=== PATIENT | male | born 1960 | race Caucasian/White ===

== ENCOUNTER 2017-01-12 15:25 | Inpatient (IN) | payer MEDICAID ==
[~2017-01-12] VITALS: Ht 190.5 cm; Wt 126.0 kg
[2017-01-12 16:18] LABS: Basophils # (auto) 0.1 uL; Basophils % (auto) 0.6 % (0.0-2.0); Eosinophils # (auto) 0.1 uL; Eosinophils % (auto) 1.4 % (0.0-7.0); Hematocrit 43.9 % (41.0-53.0); Lymphocytes # (auto) 1.5 uL; Lymphocytes % (auto) 15.9 % (10.0-50.0); Mean Corpuscular Hemoglobin 31.8 pg (28.0-32.0); Mean Corpuscular Hgb Conc. 34.2 g/dL (32.0-36.0); Mean Platelet Volume 8.8 fL (7.4-10.4); Monocytes # (auto) 0.9 uL; Neutrophils # (auto) 6.6 uL; Neutrophils % (auto) 72.1 % (37.0-80.0); Platelet Count (auto) 267 10^3/uL (140-450); Red Cell Distribution Width 13.7 % (11.6-16.0); White Blood Cell 9.2 10^3/uL (4.4-10.8)
[2017-01-12] MEDS ORDERED: SODIUM CHLORIDE 0.9% 1,000 ML IV ONE (16:20)
[2017-01-12] MEDS ORDERED: ASPirin 81 mg TAB PO ONE (16:30)
[2017-01-12] MEDS ORDERED: MORPHINE SULF INJ 2 MG/ML SYRINGE 1ML IV ONE (16:30)
[2017-01-12 16:32] LABS: INR 0.92 (0.9-1.15); Partial Thromboplastin Time 24.2 sec (22.64-33.71)
[2017-01-12 16:45] LABS: Potassium 4.2 mmol/L (3.5-5.1)
[2017-01-12] MEDS ORDERED: ONDANSETRON HCL 4 MG/2 ML VIAL IV ONE (16:45)
[2017-01-12 16:46] LABS: Albumin 3.5 g/dL (3.4-5.0); Bilirubin, Total 0.4 mg/dL (0.2-1.0); Calcium 8.6 mg/dL (8.5-10.1); Magnesium 2.5 mg/dL (1.6-2.6); Total Protein 7.6 g/dL (6.4-8.2)
[2017-01-12] MEDS ORDERED: ZOLPIDEM TARTRATE 5 MG TAB PO PRN (19:30)
[2017-01-12] MEDS ORDERED: MORPHINE SULF INJ 2 MG/ML SYRINGE 1ML IV PRN ×2 (19:30)
[2017-01-12] MEDS ORDERED: ACETAMINOPHEN 325 MG TAB PO PRN (19:30)
[2017-01-12] MEDS ORDERED: LORazepam 0.5 MG TAB PO PRN (19:30)
[2017-01-12] MEDS ORDERED: ALUM & MAG HYDROX-SIMETH LIQ(MAALOX) 30 ML PO PRN (19:30)
[2017-01-12] MEDS ORDERED: NITROGLYCERIN 0.4 MG SL TAB SL PRN ×2 (19:30)
[2017-01-12] MEDS ORDERED: ONDANSETRON HCL 4 MG/2 ML VIAL IV PRN (19:30)
[2017-01-12] MEDS: CARVEDILOL 12.5 MG TAB PO SCH (22:00)
[2017-01-12] MEDS: ATORVASTATIN 20 MG TAB PO SCH (22:25)
[2017-01-12] MEDS: SODIUM CHLOR 0.9% PF (SALINE LOCK) 10ML VIAL IV SCH (22:26)
[2017-01-12 22:45] VITALS: BP 167/105
[2017-01-12 22:46] VITALS: BP 144/106
[2017-01-13] MEDS ORDERED: CARV12.544 PO (00:15)
[2017-01-13] MEDS ORDERED: LISI2.5T47 PO (00:15)
[2017-01-13] MEDS ORDERED: RIVA20TA PO (00:15)
[2017-01-13] MEDS ORDERED: SIMV-13 PO (00:15)
[2017-01-13] MEDS ORDERED: FURO40TA4 PO (00:15)
[2017-01-13 01:16] LABS: Urine Bilirubin Negative (Negative); Urine Blood Negative /uL (Negative); Urine Color Yellow (Yellow); Urine Glucose Normal (Normal); Urine Ketone Negative (Negative); Urine Mucus FEW (None Seen); Urine Nitrite Negative (Negative); Urine RBC 5 /hpf (0 - 3); Urine Squamous Epithelial Cell FEW /hpf (<5); Urine Urobilinogen Normal (Negative)
[2017-01-13 05:25] VITALS: BP 121/85
[2017-01-13] MEDS: SODIUM CHLOR 0.9% PF (SALINE LOCK) 10ML VIAL IV SCH ×3 (06:41→21:10)
[2017-01-13 06:49] LABS: Basophils # (auto) 0.1 uL; Basophils % (auto) 0.7 % (0.0-2.0); Eosinophils # (auto) 0.1 uL; Eosinophils % (auto) 1.6 % (0.0-7.0); Hematocrit 39.7 % (41.0-53.0); Hemoglobin 13.4 g/dL (13.5-17.5); Lymphocytes # (auto) 1.4 uL; Lymphocytes % (auto) 17.1 % (10.0-50.0); Mean Corpuscular Hemoglobin 31.8 pg (28.0-32.0); Mean Corpuscular Hgb Conc. 33.7 g/dL (32.0-36.0); Mean Corpuscular Volume 94.4 fL (80.0-100.0); Mean Platelet Volume 9.3 fL (7.4-10.4); Monocytes # (auto) 0.8 uL; Monocytes % (auto) 9.6 % (0.0-12.0); Neutrophils # (auto) 5.9 uL; Platelet Count (auto) 205 10^3/uL (140-450); White Blood Cell 8.4 10^3/uL (4.4-10.8)
[2017-01-13 06:55] LABS: Albumin 3.2 g/dL (3.4-5.0); BUN/Creatinine Ratio 17.8; Calcium 8.6 mg/dL (8.5-10.1); Magnesium 2.5 mg/dL (1.6-2.6)
[2017-01-13 06:58] LABS: Bilirubin, Total 0.4 mg/dL (0.2-1.0); Total Protein 6.7 g/dL (6.4-8.2)
[2017-01-13 08:00] VITALS: BP 128/76
[2017-01-13 08:01] LABS: B-Type Natriuretic Peptide 17.79 pg/mL (0-100)
[2017-01-13 08:03] LABS: Temperature: 23.5 C (20.0-25.0)
[2017-01-13 09:04] VITALS: BP 131/80
[2017-01-13] MEDS: CARVEDILOL 12.5 MG TAB PO SCH ×2 (10:00→21:10)
[2017-01-13] MEDS: ASPirin 81 mg TAB PO SCH (10:14)
[2017-01-13] MEDS: LISINOPRIL 5 MG TAB PO SCH (10:15)
[2017-01-13] MEDS: CLOPIDOGREL BISULFATE 75 MG TAB PO SCH (10:15)
[2017-01-13] MEDS: FUROSEMIDE 40 MG TAB PO SCH (10:16)
[2017-01-13] MEDS: DOCUSATE SOD 100 MG CAP PO SCH (10:16)
[2017-01-13] MEDS: POTASSIUM CHL 10 Meq TABLET PO SCH (10:17)
[2017-01-13 13:00] VITALS: BP 113/68
[2017-01-13 17:09] VITALS: BP 129/71
[2017-01-13] MEDS ORDERED: RIVAROXABAN 20 MG TAB PO SCH (18:00)
[2017-01-13] MEDS: ATORVASTATIN 20 MG TAB PO SCH (21:09)
[2017-01-13 21:55] VITALS: BP 109/71
[2017-01-14 04:54] VITALS: BP 133/95
[2017-01-14] MEDS: SODIUM CHLOR 0.9% PF (SALINE LOCK) 10ML VIAL IV SCH ×2 (06:06→14:00)
[2017-01-14 08:00] VITALS: BP 124/78
[2017-01-14 09:09] VITALS: BP 124/75
[2017-01-14] MEDS: POTASSIUM CHL 10 Meq TABLET PO SCH (09:54)
[2017-01-14] MEDS: CLOPIDOGREL BISULFATE 75 MG TAB PO SCH (09:54)
[2017-01-14] MEDS: DOCUSATE SOD 100 MG CAP PO SCH (09:54)
[2017-01-14] MEDS: ASPirin 81 mg TAB PO SCH (09:54)
[2017-01-14] MEDS: LISINOPRIL 5 MG TAB PO SCH (09:55)
[2017-01-14] MEDS: FUROSEMIDE 40 MG TAB PO SCH (09:55)
[2017-01-14] MEDS: CARVEDILOL 12.5 MG TAB PO SCH (09:56)
[2017-01-14 11:42] VITALS: BP 148/80
[2017-01-14 12:00] VITALS: BP 148/80
== END 2017-01-14 16:03 | disposition home or self-care (01) | DRG 206 ==
LOC: ER 15:30 → TELE 15:31 → TELE-WESTW 22:00
PROVIDERS: ADMIT Internal Medicine; ATTEND Internal Medicine
PROC: 4B02XTZ Measurement of Cardiac Defibrillator, External Approach (ICD-10-PCS; principal; 2017-01-12)
DX: T82.897A Other specified complication of cardiac prosthetic devices, implants and grafts, initial encounter (principal); I13.0 Hypertensive heart and chronic kidney disease with heart failure and stage 1 through stage 4 chronic kidney disease, or unspecified chronic kidney disease; I42.9 Cardiomyopathy, unspecified; I50.42 Chronic combined systolic (congestive) and diastolic (congestive) heart failure; R07.89 Other chest pain; E78.5 Hyperlipidemia, unspecified; N18.2 Chronic kidney disease, stage 2 (mild); F41.1 Generalized anxiety disorder; I25.10 Atherosclerotic heart disease of native coronary artery without angina pectoris; Z71.89 Other specified counseling
CPT/HCPCS: 36415; 71020; 80053; 80061; 81001; 83735; 83880; 84443; 84484; 85025; 85610; 85730; 93005; 93306; 94761; 96361; 96374; 96375; J2405

== ENCOUNTER → 2017-10-22 | Outpatient (CLI) | payer MEDICAID ==
[~2017-10-22] MED LIST: CARV12.544 PO; FURO40TA4 PO; LISI2.5T47 PO; OPTISON 3ml Vial for INJ IV ONE; RIVA20TA PO; SIMV-13 PO
== END | disposition home or self-care (01) ==
LOC: XYW 10:53
PROVIDERS: ATTEND Internal Medicine Cardiovascular Disease
DX: I42.0 Dilated cardiomyopathy (principal)
CPT/HCPCS: 93306; Q9956